=== PATIENT | male | born 1955 | race African-American/Black ===

== ENCOUNTER 2021-05-11 12:15 | Emergency (ER) | payer MEDICARE ==
[2021-05-11] MEDS ORDERED: diphenhydrAMINE 50 MG/ML VIAL ONE (12:55)
[2021-05-11] MEDS ORDERED: methylPREDNISolone Sod Succ/PF 125 MG/2 ML VIAL ONE (12:55)
[2021-05-11] MEDS ORDERED: Famotidine/PF 20 mg/2ml Vial ONE (12:55)
== END 2021-05-11 14:16 | disposition home or self-care (01) ==
LOC: NAV ERS 12:15
DX: T78.3XXA Angioneurotic edema, initial encounter (principal); I10 Essential (primary) hypertension; N40.0 Benign prostatic hyperplasia without lower urinary tract symptoms; Z79.899 Other long term (current) drug therapy; Z87.891 Personal history of nicotine dependence
CPT/HCPCS: 96374; 96375; J1200; J2930; S0028